=== PATIENT | male | born 1940 | race Caucasian/White ===

== ENCOUNTER 2017-08-13 15:23 | Emergency (ER) | payer MEDICARE, OTHER ==
--- NOTE | 2017-08-13 15:55 | ED Physician Documentation ---
History of Present Illness - Stated complaint Stated Complaint: GLF/ R ELBOW PX - Chief complaint Chief Complaint: Ext Problem - History obtained from History obtained from: Patient, Family - History of Present Illness Timing: How many hours ago (2) Pain level max: 8 Pain level now: 5 Quality: aching Improved by: rest Worsened by: movement - Additonal information Additional information: Patient is a 77-year-old male who presents to the emergency department after a fall onto concrete today. Complaining of right elbow pain. Denies any shoulder pain, forearm pain wrist or hand pain. It did not strike his head. No loss of consciousness. No vomiting. No back pain. Not on blood thinners. Review of Systems Constitutional: denies: Fever, Chills Nose: denies: Rhinorrhea / runny nose, Congestion Throat: denies: Sore throat Cardiac: denies: Chest pain / pressure Respiratory: denies: Cough GI: denies: Nausea, Vomiting, Diarrhea Skin: denies: Rash Musculoskeletal: denies: Neck pain, Back pain Neurologic: denies: Focal weakness, Numbness, Confused, Altered mental status, Headache PD PAST MEDICAL HISTORY - Past Medical History Past Medical History: Yes : Renal insuffiency - Past Surgical History Past Surgical History: Yes Ortho: Hip replacement Other past surgical history: lung transplant - Present Medications Home Medications: Ambulatory Orders Medication Instructions Recorded Confirmed Atorvastatin Calcium [Lipitor] 40 mg PO DAILY 08/15/15 08/15/15 Tacrolimus 1 mg PO DAILY 08/15/15 08/15/15 Hydrocodone/Acetaminophen 1 - 2 each PO Q6H PRN #14 tablet 08/13/17 [Hydrocodon-Acetaminophen 5-325] - Allergies Allergies/Adverse Reactions: Allergies Allergy/AdvReac Type Severity Reaction Status Date / Time No Known Drug Allergies Allergy Verified 10/08/14 09:38 - Living Situation Living Situation: reports: With family Living Arrangement: reports: At home - Social History Does the pt smoke?: No Smoking Status: Never smoker Does the pt drink ETOH?: No Does the pt have substance abuse?: No - Immunizations Immunizations are current?: Yes PD ED PE NORMAL - Vitals Vital signs reviewed: Yes - General General: Alert and oriented X 3, No acute distress - HEENT HEENT: Atraumatic, PERRL, EOMI, Moist mucous membranes - Neck Neck: Supple, no meningeal sign, No bony TTP - Cardiac Cardiac: RRR - Respiratory Respiratory: No respiratory distress, Clear bilaterally - Abdomen Abdomen: Soft, Non tender, Non distended - Back Back: No spinal TTP - Derm Derm: Warm and dry - Extremities Extremities: No deformity, Other (Pain with ROM of the R elbow and hematoma to the olecranon aspect. ) - Neuro Neuro: Alert and oriented X 3, staging technician 2-12 intact, No motor deficit, No sensory deficit, Normal speech Eye Opening: Spontaneous Motor: Obeys Commands Verbal: Oriented GCS Score: 15 - Psych Psych: Normal mood, Normal affect Results - Vitals Vitals: Vital Signs - 24 hr 08/13/17 08/13/17 15:29 16:50 Temperature 36.6 C Heart Rate 78 70 Respiratory 18 16 Rate Blood Pressure 128/80 120/68 O2 Saturation 98 Oxygen O2 Source Room air - Rads (name of study) R elbow xray Radiology: Prelim report reviewed, EMP read contemporaneously, See rad report ( Displaced intra-articular olecranon fracture with large joint effusion) Procedures - Splint (location) R arm Splint applied by: Physician, Tech Type of splint: Fiberglass, Long arm, Posterior Other: Patient tolerated well, No complications, Neurovascular intact, Sling provided PD MEDICAL DECISION MAKING - ED course Complexity details: reviewed results, re-evaluated patient, considered differential, d/w patient, d/w car sales consultant ED course: Patient is a 77-year-old male with a displaced olecranon fracture of the right elbow after a fall onto concrete today. Placed in a posterior splint and a sling after discussion with Dr. Montano, orthopedist on-call, who recommends follow-up in the office for operative repair. No other injuries. No head injury. Patient declines any pain medication here or for home. Neurovascularly intact. Patient counseled regarding signs and symptoms for which I believe and urgent re-evaluation would be necessary. Patient with good understanding of and agreement to plan and is comfortable going home at this time This document was made in part using voice recognition software. While efforts are made to proofread this document, sound alike and grammatical errors may occur. - Sepsis Event Vital Signs: Vital Signs - 24 hr 08/13/17 08/13/17 15:29 16:50 Temperature 36.6 C Heart Rate 78 70 Respiratory 18 16 Rate Blood Pressure 128/80 120/68 O2 Saturation 98 Oxygen O2 Source Room air Departure - Departure Disposition: 01 Home, Self Care Clinical Impression: Displaced intra-articular fracture of olecranon process of right ulna Qualifiers: Encounter type: initial encounter Fracture type: closed Qualified Code(s): S52.031A - Displaced fracture of olecranon process with intraarticular extension of right ulna, initial encounter for closed fracture Condition: Good Instructions: ED Fx Upper Ext Follow-Up: [facility] [Provider Group] - Within 1 week Prescriptions: Hydrocodone/Acetaminophen [Hydrocodon-Acetaminophen 5-325] 1 - 2 each PO Q6H PRN #14 tablet PRN Reason: pain Comments: Return if you worsen. Follow up with orthopedics this week for further care. I spoke with Dr. Juarez today. Do not drink alcohol or drive while on narcotic pain medicine. Note that many narcotic pain relievers also contain tylenol/acetaminophen. Please ensure that your total dose of acetaminophen from all sources does not exceed 3 grams (3000mg) per day. You may constipated on this medication, take a stool softener such as "Colace" twice a day while you are on it. Also recommend a haoy-vgb-rmyyprg laxative such as senna or MiraLAX any day that you do not have a bowel movement. If you received narcotic pain medication in the emergency department, do not drive or operate machinery for the next 24 hours. Discharge Date/Time: 08/13/17 16:58
--- NOTE | 2017-08-13 16:18 | XRAY Report ---
Procedure Date: 08/13/2017 Accession Number: [id number] / [id number] Procedure: XR - Elbow 3 View RT CPT Code: FULL RESULT: EXAM: RIGHT ELBOW RADIOGRAPHY EXAM DATE: 08/13/2017 03:54 PM. CLINICAL HISTORY: Fell onto concrete. COMPARISON: None. TECHNIQUE: 3 views. FINDINGS: Bones: There is an intra-articular comminuted fracture of the olecranon. The fracture demonstrates 1 cm of displacement. Joints: There is a large joint effusion. No dislocation. Soft Tissues: There is soft tissue swelling. IMPRESSION: Displaced intra-articular olecranon fracture with large joint effusion. RADIA
[2017-08-13 18:19] VITALS: BP 120/68
== END 2017-08-13 16:58 | disposition home or self-care (01) ==
LOC: ED 15:23
DX: S52.031A Displaced fracture of olecranon process with intraarticular extension of right ulna, initial encounter for closed fracture (principal); W01.10XA Fall on same level from slipping, tripping and stumbling with subsequent striking against unspecified object, initial encounter; Y93.01 Activity, walking, marching and hiking; Z96.649 Presence of unspecified artificial hip joint; Z94.2 Lung transplant status
CPT/HCPCS: 29105; 99283; 99284

== ENCOUNTER 2017-08-14 16:36 | Emergency (ER) | payer MEDICARE, OTHER ==
[2017-08-14 17:03] VITALS: BP 131/95
--- NOTE | 2017-08-14 18:31 | ED Physician Documentation ---
PD HPI WOUND RECHECK - Stated complaint Stated Complaint: R ELBOW PX - Chief complaint Chief Complaint: General - Histroy obtained from History obtained from: Patient, Family - History of Present Illness Location: Right Upper Extremity (elbow) Recently seen: Emergency Dept (seen with Dx of elbow fracture, with splint and given Rx for 14 pain meds and to see Ortho. Has appt next week and is concerned about running out of meds as is down to few of them and will run out on the 4th before can get other Rx.) Review of Systems Constitutional: denies: Fever, Chills Skin: denies: Abrasion (s) Musculoskeletal: reports: Other (right hand edema distal to the víctor wraps.) PD PAST MEDICAL HISTORY - Past Medical History Past Medical History: Yes : Renal insuffiency - Past Surgical History Past Surgical History: Yes Ortho: Hip replacement - Present Medications Home Medications: Ambulatory Orders Medication Instructions Recorded Confirmed Atorvastatin Calcium [Lipitor] 40 mg PO DAILY 08/15/15 08/15/15 Tacrolimus 1 mg PO DAILY 08/15/15 08/15/15 Hydrocodone/Acetaminophen 1 - 2 each PO Q6H PRN #14 tablet 08/13/17 [Hydrocodon-Acetaminophen 5-325] HYDROcod/ACETAM 5/325 [[place] 5/325] 1 - 2 tab PO Q6H PRN #25 tablet 08/14/17 - Allergies Allergies/Adverse Reactions: Allergies Allergy/AdvReac Type Severity Reaction Status Date / Time No Known Drug Allergies Allergy Verified 10/08/14 09:38 - Social History Does the pt smoke?: No Smoking Status: Never smoker Does the pt drink ETOH?: No Does the pt have substance abuse?: No - Immunizations Immunizations are current?: Yes PD ED PE NORMAL - Vitals Vital signs reviewed: Yes - General General: Alert and oriented X 3, No acute distress, Well developed/nourished - HEENT HEENT: Atraumatic - Neck Neck: Other (right elbow painful to attempt ROM of it. ) - Cardiac Cardiac: RRR, No murmur - Respiratory Respiratory: Clear bilaterally - Derm Derm: Normal color, Warm and dry - Extremities Extremities: No tenderness to palpate - Neuro Neuro: Alert and oriented X 3, No motor deficit, Normal speech - Psych Psych: Normal mood, Normal affect Results - Vitals Vitals: Oxygen O2 Source Room air PD MEDICAL DECISION MAKING - ED course Complexity details: considered differential (had to use pain meds regularly and will not have ortho appt until next week. So here for more pain meds, so does not run out over day of , adn has oted hand swollen, so had Tech loosen the víctor wrap loosened. ), d/w patient, d/w family (spouse) - Sepsis Event Vital Signs: Oxygen O2 Source Room air Departure - Departure Disposition: Home, Self Care Clinical Impression: Fracture follow-up Condition: Stable Record reviewed to determine appropriate education?: Yes Prescriptions: HYDROcod/ACETAM 5/325 [[place] 5/325] 1 - 2 tab PO Q6H PRN #25 tablet PRN Reason: Pain Comments: Continue the current splint sling and care. Continue medications as prescribed. Ice and elevate the elbow often to reduce swelling. The looser Víctor wrap should help the swelling in that hand. Follow-up Sunday as planned with orthopedics. Discharge Date/Time: 08/14/17 19:18
[2017-08-14] MEDS ORDERED: HYDROcod/ACETAM 5/325 MG TABLET PO STA (18:50)
== END 2017-08-14 19:18 | disposition home or self-care (01) ==
LOC: ED 16:36
DX: S42.401A Unspecified fracture of lower end of right humerus, initial encounter for closed fracture (principal); M79.89 Other specified soft tissue disorders
CPT/HCPCS: 99283; A9270

== ENCOUNTER 2017-10-16 12:51 | Outpatient (CLI) | payer MEDICARE, OTHER ==
[2017-10-16 18:04] LABS: CREATININE 2.9 mg/dL (0.6-1.2)
== END 2017-10-16 12:52 | disposition home or self-care (01) ==
LOC: LAB.F 12:51
PROVIDERS: ATTEND Internal Medicine
DX: Z94.2 Lung transplant status (principal); Z79.899 Other long term (current) drug therapy
CPT/HCPCS: 36415; 80048; 80197

== ENCOUNTER 2017-11-05 11:45 | Emergency (ER) | payer MEDICARE, OTHER ==
--- NOTE | 2017-11-05 12:48 | ED Physician Documentation ---
PD HPI HEAD INJURY - Stated complaint Stated Complaint: HEAD LAC-GLF - Chief complaint Chief Complaint: Heent - History obtained from History obtained from: Patient - History of Present Illness Mechanism of head injury: Fell (uses walker/cane and says he lost balance and fell backward. Denies syncope nor feeling badly prior. Struck back of head on counter, with laceration. Feeling okay afterward. Not on blood thinners.) Where head injury occurred: Home Timing - onset: Today Location of injury: Back Associated symptoms: No: LOC, AMS, Nausea / vomiting Symptoms worsen with: Palpation Contributing factors: No: Anticoagulated, Intoxicated Similar symptoms before: No diagnosis (has balance problems ongoing.) Recently seen: Not recently seen Review of Systems Constitutional: denies: Fever Eyes: denies: Loss of vision Nose: denies: Rhinorrhea / runny nose, Congestion Cardiac: denies: Chest pain / pressure Respiratory: denies: Cough GI: denies: Abdominal Pain, Vomiting Neurologic: reports: Head injury. denies: Focal weakness, Numbness, Difficulty speaking, Altered mental status, Headache PD PAST MEDICAL HISTORY - Past Medical History Past Medical History: Yes Respiratory: Emphysema : Renal insuffiency Musculoskeletal: Osteoarthritis - Past Surgical History Past Surgical History: Yes Ortho: Hip replacement, Other - Present Medications Home Medications: Ambulatory Orders Medication Instructions Recorded Confirmed Atorvastatin Calcium [Lipitor] 40 mg PO DAILY 08/15/15 08/15/15 Tacrolimus 1 mg PO DAILY 08/15/15 08/15/15 Hydrocodone/Acetaminophen 1 - 2 each PO Q6H PRN #14 tablet 08/13/17 [Hydrocodon-Acetaminophen 5-325] HYDROcod/ACETAM 5/325 [[place] 5/325] 1 - 2 tab PO Q6H PRN #25 tablet 08/14/17 - Allergies Allergies/Adverse Reactions: Allergies Allergy/AdvReac Type Severity Reaction Status Date / Time No Known Drug Allergies Allergy Verified 10/08/14 09:38 - Social History Does the pt smoke?: No Smoking Status: Never smoker Does the pt drink ETOH?: No Does the pt have substance abuse?: No - Immunizations Immunizations are current?: Yes - POLST Patient has POLST: Yes PD ED PE NORMAL - Vitals Vital signs reviewed: Yes - General General: Alert and oriented X 3, No acute distress, Well developed/nourished, Other (frail appearance) - HEENT HEENT: Other (occiput with 2 lacs, totalling about 3 cm. Mild bleeding at upper one. They are both full thickness. No FB noted. ) - Neck Neck: Supple, no meningeal sign, No bony TTP, No adenopathy - Cardiac Cardiac: RRR, No murmur - Respiratory Respiratory: Clear bilaterally - Abdomen Abdomen: Soft, Non tender - Back Back: No spinal TTP - Derm Derm: Normal color, Warm and dry - Extremities Extremities: No tenderness to palpate, Normal ROM s pain - Neuro Neuro: Alert and oriented X 3, senior attorney 2-12 intact, No motor deficit, No sensory deficit, Normal speech Eye Opening: Spontaneous Motor: Obeys Commands Verbal: Oriented GCS Score: 15 Results - Vitals Vitals: Oxygen O2 Source Room air - Rads (name of study) head CT Radiology: Prelim report reviewed (no ICH), EMP read contemporaneously Procedures - Laceration (location) occipital scalp Length in cm: 3 Wound type: Linear, Into subcut fat, Clean Neurovascular status: Sensory intact Anesthesia: Lidocaine 1% with epi Wound Preparation: Irrigated copiously NS Skin layer closure: [place] Other: Patient tolerated well, No complications, Dressing applied, Tetanus UTD Complexity: Simple PD MEDICAL DECISION MAKING - ED course Complexity details: reviewed results, considered differential, d/w patient, d/w family () - Sepsis Event Vital Signs: Oxygen O2 Source Room air Departure - Departure Disposition: 01 Home, Self Care Clinical Impression: Fall from slip, trip, or stumble Qualifiers: Encounter type: initial encounter Qualified Code(s): W01.0XXA - Fall on same level from slipping, tripping and stumbling without subsequent striking against object, initial encounter Scalp laceration Qualifiers: Encounter type: initial encounter Qualified Code(s): S01.01XA - Laceration without foreign body of scalp, initial encounter Condition: Stable Record reviewed to determine appropriate education?: Yes Instructions: ED Laceration Scalp Stitch Or Stap Follow-Up: Maninder Diez MD [Primary Care Provider] - Comments: It is okay to wash and shower. Clean off the wound twice a day with soap and water, or peroxide and water. Apply some antibiotic ointment to it to keep it moist. Also to watch for signs of infection such as purulence, redness or increasing pain. Return to your primary care or the ER at the specified time for suture removal. Staple removal in 8-10 days. Tylenol if needed for pains. Your head CT scan appears normal without any signs of bleeding intracranially or skull fracture etc. Discharge Date/Time: 11/05/17 14:18
[2017-11-05] MEDS ORDERED: LIDOCAINE MPF 1%-EPI 1:200000 30 ML VIAL SUBQ STA (13:03)
--- NOTE | 2017-11-05 13:41 | CT Report ---
Reason: fell and hit head Procedure Date: 11/05/2017 Accession Number: [id number] / [id number] Procedure: CT - Head W/O CPT Code: FULL RESULT: EXAM: CT HEAD EXAM DATE: 11/05/2017 01:29 PM. CLINICAL HISTORY: Fell and hit head. COMPARISON: CT head without contrast 11/05/2017 1:19 pm. TECHNIQUE: Multiaxial CT images were obtained from the foramen magnum to the vertex. Reformats: Sagittal and coronal. IV contrast: None. In accordance with CT protocol optimization, one or more of the following dose reduction techniques were utilized for this exam: automated exposure control, adjustment of mA and/or KV based on patient size, or use of iterative reconstructive technique. FINDINGS: Parenchyma: No intraparenchymal hemorrhage. No evidence of mass, midline shift, or CT findings of infarction. Karimi-white differentiation is distinct. Extraaxial Spaces: Normal for age. No subdural or epidural collections identified. Ventricles: Normal in size and position. Sinuses and Orbits: Imaged paranasal sinuses, orbits, and mastoids show no significant abnormality. Bones: No evidence of fracture or calvarial defect. Other: Extracranially, soft tissue swelling is identified along the posterior left head and the posterior laceration in midline is also identified. IMPRESSION: No acute intracranial abnormality. Extracranial soft tissue findings along the posterior head. RADIA
[2017-11-05 14:09] VITALS: BP 143/93
== END 2017-11-05 14:18 | disposition home or self-care (01) ==
LOC: ED 11:45
DX: S01.01XA Laceration without foreign body of scalp, initial encounter (principal); W18.30XA Fall on same level, unspecified, initial encounter; Y92.009 Unspecified place in unspecified non-institutional (private) residence as the place of occurrence of the external cause; Z96.649 Presence of unspecified artificial hip joint
CPT/HCPCS: 12002; 70450; 99282; 99283

== ENCOUNTER 2017-11-25 17:38 | Emergency (ER) | payer MEDICARE, OTHER ==
[2017-11-25 17:46] VITALS: BP 144/81
--- NOTE | 2017-11-25 18:15 | ED Physician Documentation ---
PD HPI HEAD INJURY - Stated complaint Stated Complaint: GLF/HEAD LAC - Chief complaint Chief Complaint: Laceration - History obtained from History obtained from: Patient - History of Present Illness Mechanism of head injury: Fell (lost balance, poor short term memory so does not recall why he fell. He does not recall feeling ill earlier in the day, and his says he had not complained of illness previously. History of early Parkinsons and has poor balance.) Where head injury occurred: Home Timing - onset: Today Location of injury: Back Quality of pain: Aching Associated symptoms: No: LOC, AMS, Nausea / vomiting, Neck pain Symptoms worsen with: Palpation Contributing factors: No: Anticoagulated, Intoxicated Similar symptoms before: Has not had sx before Recently seen: Not recently seen Review of Systems Constitutional: denies: Fever Nose: denies: Rhinorrhea / runny nose, Congestion Throat: denies: Sore throat Respiratory: denies: Cough GI: denies: Nausea, Vomiting, Diarrhea Skin: reports: Laceration (s) Neurologic: denies: Focal weakness, Numbness, Near syncope, Altered mental status, Headache PD PAST MEDICAL HISTORY - Past Medical History Respiratory: Emphysema : Renal insuffiency Musculoskeletal: Osteoarthritis - Past Surgical History Past Surgical History: Yes Ortho: Hip replacement, Other - Present Medications Home Medications: Ambulatory Orders Medication Instructions Recorded Confirmed Atorvastatin Calcium [Lipitor] 40 mg PO DAILY 08/15/15 08/15/15 Tacrolimus 1 mg PO DAILY 08/15/15 08/15/15 Hydrocodone/Acetaminophen 1 - 2 each PO Q6H PRN #14 tablet 08/13/17 [Hydrocodon-Acetaminophen 5-325] HYDROcod/ACETAM 5/325 [[place] 5/325] 1 - 2 tab PO Q6H PRN #25 tablet 08/14/17 - Allergies Allergies/Adverse Reactions: Allergies Allergy/AdvReac Type Severity Reaction Status Date / Time codeine AdvReac Nausea Verified 11/25/17 17:47 - Social History Does the pt smoke?: No Smoking Status: Never smoker Does the pt drink ETOH?: No Does the pt have substance abuse?: No - Immunizations Immunizations are current?: Yes - POLST Patient has POLST: Yes PD ED PE NORMAL - Vitals Vital signs reviewed: Yes - General General: Alert and oriented X 3, No acute distress, Well developed/nourished - HEENT HEENT: PERRL, EOMI, Moist mucous membranes, Pharynx benign, Other (upper occipital area with 2.8 cm lac with abraded edges, without FB. No depression of scalp area. No bleeding. ) - Neck Neck: Supple, no meningeal sign, No bony TTP, No adenopathy - Back Back: No spinal TTP - Derm Derm: Normal color, Warm and dry - Neuro Neuro: Alert and oriented X 3, lion tamer 2-12 intact, No motor deficit, Normal speech Eye Opening: Spontaneous Motor: Obeys Commands Verbal: Oriented GCS Score: 15 Results - Vitals Vitals: Vital Signs - 24 hr 11/25/17 17:44 Temperature 36.1 C L Heart Rate 85 Respiratory 16 Rate Blood Pressure 144/81 H O2 Saturation 98 Oxygen O2 Source Room air Procedures - Laceration (location) occipital scalp (upper) Length in cm: 2.8 Wound type: Linear, Into subcut fat (with abarsions at edges.), Clean Anesthesia: Lidocaine 1% with epi Wound Preparation: Irrigated copiously NS, Wound explored, To the base. No: FB identified Skin layer closure: [place] Other: Patient tolerated well, No complications, Tetanus UTD Complexity: Simple PD MEDICAL DECISION MAKING - ED course Complexity details: considered differential (not on blood thinners. Had glancing injury to scalp with lac. No LOC nor hard direct impact. No concussive symptoms. Talked with him and and shared decision with me to not get imaging. Placed sharmaine in wound without problems. ), d/w patient, d/w family () Departure - Departure Disposition: 01 Home, Self Care Clinical Impression: Fall, accidental Qualifiers: Encounter type: initial encounter Qualified Code(s): W19.XXXA - Unspecified fall, initial encounter Occipital scalp laceration Qualifiers: Encounter type: initial encounter Qualified Code(s): S01.01XA - Laceration without foreign body of scalp, initial encounter Condition: Stable Record reviewed to determine appropriate education?: Yes Instructions: ED Laceration Scalp Stitch Or Stap Follow-Up: Maninder Diez MD [Primary Care Provider] - Comments: It is okay to wash and shower. Clean off the wound twice a day with soap and water, or peroxide and water. Apply some antibiotic ointment to it to keep it moist. Also to watch for signs of infection such as purulence, redness or increasing pain. Return to your primary care or the ER at the specified time for suture removal. Staple removal about 10 days. Tylenol if needed for pains. Discharge Date/Time: 11/25/17 18:44
== END 2017-11-25 18:44 | disposition home or self-care (01) ==
LOC: ED 17:38
DX: S01.01XA Laceration without foreign body of scalp, initial encounter (principal); W19.XXXA Unspecified fall, initial encounter; Y92.009 Unspecified place in unspecified non-institutional (private) residence as the place of occurrence of the external cause
CPT/HCPCS: 12002; 99283

== ENCOUNTER 2018-02-25 14:15 | Observation (INO) | payer MEDICARE, OTHER ==
--- NOTE | 2018-02-25 16:49 | XRAY Report ---
Reason: GLF, rt hip pain, unable to bear wt Procedure Date: 02/25/2018 Accession Number: [id number] / [id number] Procedure: XR - Hip w/Pelvis 2-3V RT CPT Code: FULL RESULT: EXAM: RIGHT HIP AND PELVIS RADIOGRAPHY EXAM DATE: 02/25/2018 04:33 PM. HISTORY: GLF, rt hip pain, unable to bear wt. COMPARISONS: PELVIS 3 VIEW 08/15/2015 11:56 AM. TECHNIQUE: 1 view of the pelvis and 1 view of the hip. FINDINGS: Bones: Right hip arthroplasty appears intact. Old healed left obturator ring fractures. Similar sclerotic region superior to the right acetabulum. Similar heterotopic ossification lateral to the right hip. Bones appear osteopenic. Joints: Mild-moderate left hip joint DJD. Soft Tissues: Unremarkable. IMPRESSION: 1. No definite acute osseous abnormality. 2. Other findings as noted above. RADIA
[2018-02-25] MEDS ORDERED: HYDROcod/ACETAM 5/325 MG TABLET PO STA (19:38)
[2018-02-25 19:54] LABS: BASOPHILS # (AUTO) 0.1 10^3/uL (0.0-0.1); BASOPHILS % (AUTO) 1.1 %; EOSINOPHILS # (AUTO) 0.1 10^3/uL (0.0-0.7); EOSINOPHILS % (AUTO) 1.6 %; HGB - HEMOGLOBIN 12.9 g/dL (14.0-18.0); LYMPHOCYTES # (AUTO) 0.6 10^3/uL (1.5-3.5); LYMPHOCYTES % (AUTO) 8.5 %; MEAN CORPUSCULAR HEMOGLOBIN 30.5 pg (27.0-31.0); MEAN CORPUSCULAR VOLUME 95.1 fL (80.0-94.0); MEAN PLATELET VOLUME 6.2 fL (7.4-11.4); MONOCYTES # (AUTO) 0.9 10^3/uL (0.0-1.0); MONOCYTES % (AUTO) 12.5 %; NEUTROPHILS # (AUTO) 5.5 10^3/uL (1.5-6.6); NEUTROPHILS % (AUTO) 76.3 %; PLT - PLATELET COUNT 168 10^3/uL (130-450); RED BLOOD COUNT 4.24 10^6/uL (4.70-6.10); RED CELL DISTRIBUTION WIDTH 15.6 % (12.0-15.0); WHITE BLOOD COUNT 7.2 x10^3/uL (4.8-10.8)
[2018-02-25 20:03] LABS: CREATININE 2.7 mg/dL (0.6-1.2)
--- NOTE | 2018-02-25 21:39 | CT Report ---
Reason: Right hip pain, unable to bare weight Procedure Date: 02/25/2018 Accession Number: [id number] / [id number] Procedure: CT - Lower Extremity Right W/O CPT Code: FULL RESULT: EXAM: RIGHT HIP CT WITHOUT CONTRAST EXAM DATE: 02/25/2018 09:21 PM. CLINICAL HISTORY: Right hip pain. Inability to bear weight. COMPARISON: 142 02/25/2018 radiograph. TECHNIQUE: Thin-section axial images were acquired of the hip without contrast. Post-processing: Coronal and sagittal reformats. Other: None. In accordance with CT protocol optimization, one or more of the following dose reduction techniques were utilized for this exam: automated exposure control, adjustment of mA and/or KV based on patient size, or use of iterative reconstructive technique. FINDINGS: Evaluation is limited by patient positioning issues. Bones: A benign bone island is in the right mid ileum. Severe osteopenia limits evaluation for subtle bony abnormalities. The patient has a right hip arthroplasty with non-fixated components. No acute gross displaced fractures by CT. There does appear to be an old healed fracture of the left pubic bone with deformity. Small acetabular cysts are seen. Joints: The visualized hip joint spaces are normal. No calcified loose bodies. No large effusions. The other visualized joint spaces are normal. Musculature: Normal. No fatty atrophy. Other: The visualized intraperitoneal structures are unremarkable. IMPRESSION: No definite acute findings. Note that CT can be falsely negative for trabecular fractures in the elderly. RADIA
[2018-02-25] MEDS ORDERED: ONDANSETRON ODT 4 MG TABLET TL PRN (22:26)
[2018-02-25] MEDS ORDERED: SODIUM CHLORIDE FLUSH 0.9% 10 ML SYRINGE IVP PRN (22:26)
[2018-02-25] MEDS ORDERED: MORPHINE 2 MG/ML CARPUJECT IVP PRN (22:26)
[2018-02-25] MEDS ORDERED: ACETAMINOPHEN 325 MG TABLET PO PRN (22:26)
[2018-02-25] MEDS ORDERED: ZOLPIDEM 5 MG TABLET PO PRN (22:26)
--- NOTE | 2018-02-25 22:28 | ED Physician Documentation ---
PD HPI LOWER EXT INJURY - Stated complaint Stated Complaint: GLF/HIP INJ - Chief complaint Chief Complaint: Ext Problem - History obtained from History obtained from: Patient - History of Present Illness PD HPI LOW EXT INJURY LOCATION: Right, Hip Type of injury: Fall Where injury occurred: Home Timing - onset: How many hours ago (24) Timing - duration: Days (1) Timing - details: Abrupt onset Pain level max: 8 Pain level now: 3 Improved by: Rest Worsened by: Moving Associated symptoms: Weakness Contributing factors: Prosthetic joint Review of Systems Ten Systems: 10 systems reviewed and negative Constitutional: reports: Reviewed and negative Eyes: reports: Reviewed and negative Ears: reports: Reviewed and negative Nose: reports: Reviewed and negative Throat: reports: Reviewed and negative Cardiac: reports: Reviewed and negative Respiratory: reports: Reviewed and negative GI: reports: Reviewed and negative : reports: Reviewed and negative Skin: reports: Reviewed and negative Musculoskeletal: reports: Reviewed and negative Neurologic: reports: Reviewed and negative Psychiatric: reports: Reviewed and negative Endocrine: reports: Reviewed and negative Immunocompromised: reports: Reviewed and negative PD PAST MEDICAL HISTORY - Past Medical History Cardiovascular: None Respiratory: Emphysema Neuro: Parkinson's Endocrine/Autoimmune: None GI: None : Renal insuffiency HEENT: None Psych: None Musculoskeletal: Osteoarthritis Derm: None Other Past Medical History: History of lung transplant, CKD - Past Surgical History Past Surgical History: Yes Ortho: Hip replacement, Other Other past surgical history: Reviewed and not relevant - Present Medications Home Medications: Ambulatory Orders Medication Instructions Recorded Confirmed Atorvastatin Calcium [Lipitor] 40 mg PO DAILY 08/15/15 08/15/15 Tacrolimus 1 mg PO DAILY 08/15/15 08/15/15 Hydrocodone/Acetaminophen 1 - 2 each PO Q6H PRN #14 tablet 08/13/17 [Hydrocodon-Acetaminophen 5-325] HYDROcod/ACETAM 5/325 [[place] 5/325] 1 - 2 tab PO Q6H PRN #25 tablet 08/14/17 - Allergies Allergies/Adverse Reactions: Allergies Allergy/AdvReac Type Severity Reaction Status Date / Time codeine AdvReac Nausea Verified 02/25/18 15:20 - Living Situation Living Situation: reports: With spouse/s.o. Living Arrangement: reports: At home - Social History Does the pt smoke?: No Smoking Status: Never smoker Does the pt drink ETOH?: Yes Does the pt have substance abuse?: No - Family History Family history: reports: Other (Reviewed and not relevant) - Immunizations Immunizations are current?: Yes - POLST Patient has POLST: Yes PD ED PE NORMAL - Vitals Vital signs reviewed: Yes - General General: Alert and oriented X 3, No acute distress - HEENT HEENT: PERRL - Neck Neck: Supple, no meningeal sign - Cardiac Cardiac: RRR, No murmur - Respiratory Respiratory: Clear bilaterally - Abdomen Abdomen: Normal bowel sounds, Soft, Non tender, Non distended - Derm Derm: Warm and dry - Extremities Extremities: No deformity, Other (Right hip tender to palpation w reduced range of motion, small bruise. ) - Neuro Neuro: Alert and oriented X 3 - Psych Psych: Normal mood, Normal affect Results - Vitals Vitals: Vital Signs - 24 hr 02/25/18 02/25/18 15:15 20:01 Temperature 36.1 C L 36.7 C Heart Rate 79 84 Respiratory 18 18 Rate Blood Pressure 172/102 H 158/97 H O2 Saturation 97 98 Oxygen O2 Source Room air - Labs Labs: Laboratory Tests 02/25/18 02/25/18 19:49 19:49 WBC 7.2 RBC 4.24 L Hgb 12.9 L Hct 40.3 L MCV 95.1 H MCH 30.5 MCHC 32.0 RDW 15.6 H Plt Count 168 MPV 6.2 L Neut # (Auto) 5.5 Lymph # (Auto) 0.6 L [place] # (Auto) 0.9 Eos # (Auto) 0.1 Baso # (Auto) 0.1 Absolute Nucleated RBC 0.00 Nucleated RBC % 0.0 Sodium 137 Potassium 3.8 Chloride 109 Carbon Dioxide 21 Anion Gap 7.0 BUN 64 H Creatinine 2.7 H Estimated GFR (MDRD) 23 L Glucose 126 H Calcium 9.0 PD MEDICAL DECISION MAKING - ED course ED course: 77-year-old male with history of right hip replacement presents with right hip pain after ground-level fall. X-ray and CT unremarkable for fracture. Patient was unable to ambulate safely and was admitted for ambulatory dysfunction. Departure - Departure Disposition: ED Place in Observation Clinical Impression: Ambulatory dysfunction Sprain of right hip Qualifiers: Encounter type: initial encounter Qualified Code(s): S73.101A - Unspecified sprain of right hip, initial encounter Condition: Fair Discharge Date/Time: 02/25/18 23:00
[2018-02-25] MEDS ORDERED: LIDOCAINE PATCH 5% TOP PRN (23:14)
--- NOTE | 2018-02-25 23:33 | HISTORY & PHYSICAL EXAMINATION ---
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 He was unable to bear weight on it and was brought to the emergency room for further evaluation. In the ED, the hip x-ray was negative for fracture, and this was followed by a CT scan of the hip which was also negative for acute fracture or other abnormal findings. Patient was going to be discharged by the ED physician however after giving an oxycodone orally, he was unable to ambulate even after using some walking poles to help him get out of the wheelchair. It was determined that because of this, he may need at least an overnight observation and a physical therapy evaluation to ensure that he is safe for discharge due to his limited ambulatory status at this time. Incidentally, lab work was done by the ED physician to rule out any acute metabolic abnormalities and though he does have some abnormal labs, his renal function is at baseline and there are no acute abnormalities on a CBC or basic metabolic panel. History - Past Medical History Cardiovascular: reports: None Respiratory: reports: Emphysema Neuro: reports: Parkinson's Endocrine/Autoimmune: reports: None GI: reports: None : reports: Renal insuffiency HEENT: reports: None Psych: reports: None Musculoskeletal: reports: Osteoarthritis Derm: reports: None MRSA Hx?: No Other Past Medical History: History of lung transplant, CKD - Past Surgical History Ortho: reports: Hip replacement, Other Other past surgical history: Reviewed and not relevant - Family & Social History Family History: Sister: Cancer (Sister with skin cancer) Living arrangement: At home Living Situation: With spouse/s.o. - Substance History Use: Uses substance without health or social issues: NONE Abuse: Recurrent use of substance despite neg consequences: NONE - POLST Patient has POLST: Yes POLST Status: Full Code Meds/Allgy - Home Medications Home Medications: Ambulatory Orders Medication Instructions Recorded Confirmed Atorvastatin Calcium [Lipitor] 40 mg PO DAILY 08/15/15 08/15/15 Tacrolimus 1 mg PO DAILY 08/15/15 08/15/15 Hydrocodone/Acetaminophen 1 - 2 each PO Q6H PRN #14 tablet 08/13/17 [Hydrocodon-Acetaminophen 5-325] HYDROcod/ACETAM 5/325 [[place] 5/325] 1 - 2 tab PO Q6H PRN #25 tablet 08/14/17 - Allergies Allergies/Adverse Reactions: Allergies Allergy/AdvReac Type Severity Reaction Status Date / Time codeine AdvReac Nausea Verified 02/25/18 15:20 Review of Systems - Constitutional Constitutional: denies: Fever, Chills, Weakness - Cardiovascular Cariovascular: denies: Chest pain - Respiratory Respiratory: denies: SOB at rest - Gastrointestinal Gastrointestinal: denies: Abdominal pain - Musculoskeletal Musculoskeletal: reports: Muscle weakness, Joint pain, Other (Chronic gait imbalance) - Neurological Neurological: reports: Abnormal gait - Hematologic/Lymphatic Hematologic/Lymphatic: denies: Anemia, Bruising, Petechiae Prior Level of Functionality: Usually he is independent though he does have a pair of walking sticks, the type typically used for hiking, that he always keeps nearby because he sometimes gets gait disturbances. Otherwise on a more regular basis he does not require these and does not use a wheelchair or walker. Exam - Vital Signs Reviewed Vital Signs: Yes Vital Signs: Vital Signs x48h Temp Pulse Pulse Resp BP BP Pulse Ox 02/25/18 23:24 36.8 C 79 18 165/106 H 100 02/25/18 22:48 36.7 C 89 18 142/98 H 99 02/25/18 20:01 36.7 C 84 18 158/97 H 98 - Physical Exam General Appearance: positive: No acute distress Eyes Bilateral: positive: Normal inspection ENT: positive: ENT inspection nml Neck: positive: Nml inspection, Thyroid nml Respiratory: positive: Chest non-tender, No respiratory distress Cardiovascular: positive: Regular rate & rhythm, No murmur, No gallop Peripheral Pulses: positive: 2+ Abdomen: positive: Non-tender Skin: positive: Color nml Extremities: positive: Other (The exam of his lower extremities is significant for tenderness to the right hip on the lateral aspect at the trochanteric bursa. Of note, internal rotation and external rotation do not reproduce true intra- articular hip pain, or anterior groin pain.) Neurologic/Psychiatric: positive: Oriented x3, CN's nml (2-12), Motor nml, Sensation nml, Mood/affect nml Conclusion/Plan - Problem List (1) Trochanteric bursitis, right hip Conclusion/Plan: Patient's fall, with landing on the lateral hip, along with the findings on exam most strongly suggest an acute bursitis injury to the greater trochanter of the right hip. I have reviewed the x-ray and CT scan and there is no evidence for fracture. Although there can be a small rate of false positives on the CT scan, his physical exam is simply not compatible with a intra-articular hip exam so I think this is less likely. We will have him admitted overnight for observation and pain control and a physical therapy evaluation in the morning. I have also added a order for topical lidocaine to help with the relatively superficial pain along the trochanteric bursa. (2) Ambulatory dysfunction Conclusion/Plan: We will get a PT consult for further evaluation prior to discharge (3) Status post lung transplantation Conclusion/Plan: Patient has chronic immunosuppressants use, with abnormal renal function seconda ry to the tacrolimus. These labs are at his baseline and are not evidence of acute renal failure. Patient will be kept on his home medication. He will follow-up with his PCP or transplant specialist in the outpatient. (4) Hyperlipidemia Conclusion/Plan: Continue home medications - Lab Results Lab results reviewed: Yes Fish Bones: 02/25/18 19:49 02/25/18 19:49 - Diagnostic Imaging Results Diagnostic Imaging Results: positive: Final report reviewed, Read independently Core Measures - Anticipated LOS I expect patient to be DC'd or transferred within 96 hours.: Yes - DVT/VTE - Prophylaxis VTE/DVT Device ordered at admit?: Yes
[2018-02-26] MEDS: HYDROcod/ACETAM 5/325 MG TABLET PO PRN ×2 (00:20→01:29)
[2018-02-26] MEDS: SODIUM CHLORIDE FLUSH 0.9% 10 ML SYRINGE IVP SCH ×2 (01:32→08:03)
[2018-02-26] MEDS: HYDROcod/ACETAM 10 MG/325 MG TABLET PO PRN ×2 (05:33→09:45)
[2018-02-26] MEDS ORDERED: POLYETHYLENE GLYCOL 3350 17 GM PACKET PO SCH (09:00)
[2018-02-26] MEDS ORDERED: TACROLIMUS 0.5 MG CAPSULE PO SCH (09:00)
[2018-02-26] MEDS ORDERED: ATORVASTATIN 40 MG TABLET PO SCH (09:00)
[2018-02-26 11:18] VITALS: BP 136/88
--- NOTE | 2018-02-26 12:58 | Discharge Plan ---
Discharge Plan Disposition: Home Health Service Condition: Fair Prescriptions: Lidocaine Patch 5% [Lidoderm Patch] 1 patch TOP DAILY PRN #20 patch PRN Reason: Pain Diet: Regular Activity Restrictions: Activity as Tolerated Shower Restrictions: No Assistance Devices: Walker Weight Bearing: Full Weight Additional Instructions or Follow Up instructions: You were admitted with weakness, and a fall in which you injured your right hip. Imaging showed no fractures. Physical therapy evaluated you and recommended that you always use a walker rather than your sticks. You have room for improvement, so I have ordered home health physical therapy for ongoing strength and gait training. There have been no medication changes. I have sent lidocaine patches to the pharmacy. After you apply these, please wash your hands because if you accidentally touch your eye, it may dilate your pupil leading to visual impairment. Please consider home care givers since you told me that you continue to fall at home and this is worrisome for injuries. Please see your PCP within one week. Follow-Up Care: Home Health - PT No Smoking: If you smoke, Please STOP! Call for help. Follow-up with: Maninder Diez MD [Primary Care Provider] -
--- NOTE | 2018-02-26 13:04 | DISCHARGE SUMMARY ---
Discharge Summary Admit Date: 02/25/18 Discharge Date: 02/26/18 Discharging Provider: ILYA Leong Primary Care Provider: Carlos Diez Code Status: Attempt Resuscitation Condition at Discharge: Fair Discharge Disposition: 06 Home Health Service - DIAGNOSES Admission Diagnoses: Trochanteric bursitis, right hip (M70.61) Difficulty in walking, not elsewhere classified (R26.2) Lung transplant status (Z94.2) Hyperlipidemia, unspecified (E78.5) Discharge Diagnoses with Status of Each Condition: Trochanteric bursitis, right hip (M70.61) ongoing, improved. Patient was able to bear weight and passed a PT evaluation. Ambulatory dysfunction (R26.2) Advised to use a walker. Status post lung transplantation (Z94.2) chronic, stable. Hyperlipidemia (E78.5) chronic, stable. Falls (W19.XXXA) chronic, stable. Dementia (F03.90) chronic, stable. Weakness (R53.1) chronic, stable. Right hip pain (M25.551) improved since admission, stable. Lidocaine patches prescribed. - HPI History of Present Illness: HPI per Dr. 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 He was unable to bear weight on it and was brought to the emergency room for further evaluation. In the ED, the hip x- ray was negative for fracture, and this was followed by a CT scan of the hip which was also negative for acute fracture or other abnormal findings. Patient was going to be discharged by the ED physician however after giving an oxycodone orally, he was unable to ambulate even after using some walking poles to help him get out of the wheelchair. It was determined that because of this, he may need at least an overnight observation and a physical therapy evaluation to ensure that he is safe for discharge due to his limited ambulatory status at this time. Incidentally, lab work was done by the ED physician to rule out any acute metabolic abnormalities and though he does have some abnormal labs, his renal function is at baseline and there are no acute abnormalities on a CBC or basic metabolic panel. - HOSPITAL COURSE Hospital Course: The patient was observed overnight and passed a physical therapy evaluation after a fall that he sustained resulting in a right hip bursitis. He was very anxious to get back home with his and medically stable to be discharged. I ordered home health PT prior to his departure. - ALLERGIES Allergies/Adverse Reactions: Allergies Allergy/AdvReac Type Severity Reaction Status Date / Time codeine AdvReac Nausea Verified 02/25/18 15:20 - MEDICATIONS Home Medications: Ambulatory Orders Medication Instructions Recorded Confirmed Tacrolimus 5 mg PO Q12H 08/15/15 02/26/18 HYDROcod/ACETAM 5/325 [[place] 5/325] 1 - 2 tab PO Q6H PRN #25 tablet 08/14/17 Acyclovir 400 mg PO BID 02/26/18 02/26/18 Aspirin [Adult Aspirin] 81 mg PO DAILY 02/26/18 02/26/18 Atorvastatin Calcium 20 mg PO QPM 02/26/18 02/26/18 Calcitriol 0.25 mcg PO DAILY 02/26/18 02/26/18 Calcium Carbonate [Tums (Calcium 500 mg PO DAILY 02/26/18 02/26/18 Carbonate 500mg)] Carbidopa/Levodopa 25/100 [Sinemet 1 tab PO TID 02/26/18 02/26/18 25 mg/100 mg] Cholecalciferol (Vitamin D3) 400 unit PO DAILY 02/26/18 02/26/18 [Vitamin D3] Ketoconazole [Nizoral] 1 applic TOP .2-3 TIMES PER WEEK 02/26/18 02/26/18 PRN Metoprolol Tartrate 25 mg PO BID 02/26/18 02/26/18 Multivitamin [Multiple Vitamins] 1 each PO DAILY 02/26/18 02/26/18 Mycophenolate Mofetil [(None)] 250 mg PO BID 02/26/18 02/26/18 Pentamidine [Nebupent] 300 mg INH .MONTHLY 02/26/18 02/26/18 Prednisone 5 mg PO DAILY 02/26/18 02/26/18 - PHYSICAL EXAM AT DISCHARGE General Appearance: positive: No acute distress, Alert Eyes Bilateral: positive: PERRL ENT: positive: Pharynx nml, No signs of dehydration Neck: positive: Thyroid nml, No JVD, Trachea midline Respiratory: positive: Chest non-tender, No respiratory distress, Breath sounds nml Cardiovascular: positive: Regular rate & rhythm, No gallop, Systolic murmur Peripheral Pulses: positive: 2+ Abdomen: positive: Non-tender, Nml bowel sounds Back: positive: Nml inspection Skin: positive: No rash, Warm, Dry Extremities: positive: Non-tender, Full ROM, Pedal edema, Joint swelling Neurologic/Psychiatric: positive: Oriented x3, CN's nml (2-12), Motor nml, Sensation nml, Depressed mood/affect, Other (baseline dementia, poor short term memory/insight) Reflexes: Bicep (R): 2+, Bicep (L): 2+ - LABS Result Diagrams: 02/25/18 19:49 02/25/18 19:49 - DIAGNOSTIC IMAGING Diagnostic Imaging Results: Final report reviewed Diagnostic Imaging Results Comments: EXAM: RIGHT HIP AND PELVIS RADIOGRAPHY EXAM DATE: 02/25/2018 04:33 PM IMPRESSION: 1. No definite acute osseous abnormality. 2. Other findings as noted above. EXAM: RIGHT HIP CT WITHOUT CONTRAST EXAM DATE: 02/25/2018 09:21 PM. IMPRESSION: No definite acute findings. Note that CT can be falsely negative for trabecular fractures in the elderly. - FOLLOW UP Follow Up: Disposition: Home Health Service Prescriptions: Lidocaine Patch 5% [Lidoderm Patch] 1 patch TOP DAILY PRN #20 patch PRN Reason: Pain Assistance Devices: Walker Additional Instructions or Follow Up instructions: You were admitted with weakness, and a fall in which you injured your right hip. Imaging showed no fractures. Physical therapy evaluated you and recommended that you always use a walker rather than your sticks. You have room for improvement, so I have ordered home health physical therapy for ongoing strength and gait training. There have been no medication changes. I have sent lidocaine patches to the pharmacy. After you apply these, please wash your hands because if you accidentally touch your eye, it may dilate your pupil leading to visual impairment. Please consider home care givers since you told me that you continue to fall at home and this is worrisome for injuries. Please see your PCP within one week. - TIME SPENT Time Spent in Discharge (Minutes): 60
== END 2018-02-26 15:35 | disposition home health service (06) ==
LOC: ED 14:15 → MS2 22:46
PROVIDERS: ADMIT Family Medicine Sports Medicine; ATTEND Family Medicine Sports Medicine
DX: M70.61 Trochanteric bursitis, right hip (principal); W01.0XXA Fall on same level from slipping, tripping and stumbling without subsequent striking against object, initial encounter; Y92.000 Kitchen of unspecified non-institutional (private) residence as the place of occurrence of the external cause; R26.2 Difficulty in walking, not elsewhere classified; Z94.2 Lung transplant status; E78.5 Hyperlipidemia, unspecified; G20 Parkinson's disease; F02.80 Dementia in other diseases classified elsewhere, unspecified severity, without behavioral disturbance, psychotic disturbance, mood disturbance, and anxiety; M19.90 Unspecified osteoarthritis, unspecified site; R53.1 Weakness; Z96.641 Presence of right artificial hip joint; Z91.81 History of falling; Z79.899 Other long term (current) drug therapy; Z79.891 Long term (current) use of opiate analgesic; Z79.82 Long term (current) use of aspirin; Z79.52 Long term (current) use of systemic steroids
CPT/HCPCS: 36415; 73502; 73700; 80048; 85025; 97116; 97161; 99283; A9270; G0378; G8978; G8979; G8980

== ENCOUNTER 2018-02-27 14:14 | Outpatient (CLI) | payer MEDICARE, OTHER | END 2018-02-27 14:15 | disposition EMS.NT | LOC: EMS 14:14 | PROVIDERS: ATTEND Surgery | DX: Z03.89 Encounter for observation for other suspected diseases and conditions ruled out (principal); W10.8XXA Fall (on) (from) other stairs and steps, initial encounter; Y93.89 Activity, other specified; Y92.009 Unspecified place in unspecified non-institutional (private) residence as the place of occurrence of the external cause ==

== ENCOUNTER 2018-03-09 02:46 | Outpatient (CLI) | payer MEDICARE, OTHER | END 2018-03-09 02:47 | disposition home or self-care (01) | LOC: EMS 02:46 | PROVIDERS: ATTEND Surgery | DX: S50.812A Abrasion of left forearm, initial encounter (principal); S40.811A Abrasion of right upper arm, initial encounter; W01.198A Fall on same level from slipping, tripping and stumbling with subsequent striking against other object, initial encounter; Z91.81 History of falling; Y92.129 Unspecified place in nursing home as the place of occurrence of the external cause | CPT/HCPCS: A0425; A0429 ==

== ENCOUNTER 2018-03-09 03:09 | Emergency (ER) | payer MEDICARE, OTHER ==
[2018-03-09 03:18] VITALS: BP 179/125
[2018-03-09] MEDS ORDERED: BACITRACIN OINT TOP ONE (03:18)
[2018-03-09] MEDS ORDERED: BACITRACIN OINT TOP STA (03:20)
--- NOTE | 2018-03-09 03:23 | ED Physician Documentation ---
History of Present Illness - Stated complaint Stated Complaint: GLF - SKIN TEAR L FOREARM, ARM - Chief complaint Chief Complaint: Ext Problem - History obtained from History obtained from: Patient, EMS - History of Present Illness Timing: How many hours ago (1) Pain level max: 0 Pain level now: 0 Improved by: nothing Worsened by: nothing - Additonal information Additional information: 77-year-old male with Parkinson's was transferring from his wheelchair to his bed when he slipped creating a skin tear on the left forearm and right posterior upper arm. Bandaged at his assisted living facility and 911 called. He has no injuries. Did not strike his head. No neck or back pain. No other complaints. Patient is not on anticoagulants Review of Systems Ten Systems: 10 systems reviewed and negative Constitutional: denies: Fever, Chills Ears: denies: Ear pain Nose: denies: Rhinorrhea / runny nose, Congestion Throat: denies: Sore throat Cardiac: denies: Chest pain / pressure Respiratory: denies: Cough GI: denies: Nausea, Vomiting, Diarrhea Skin: denies: Rash Musculoskeletal: denies: Neck pain, Back pain Neurologic: denies: Headache PD PAST MEDICAL HISTORY - Past Medical History Cardiovascular: None Respiratory: Emphysema Neuro: Parkinson's Endocrine/Autoimmune: None GI: None : Renal insuffiency HEENT: None Psych: None Musculoskeletal: Osteoarthritis Derm: None - Past Surgical History Past Surgical History: Yes General: Colonoscopy Ortho: Hip replacement, Other Cardiovascular: Cardiac catheterization - Present Medications Home Medications: Ambulatory Orders Medication Instructions Recorded Confirmed Tacrolimus 5 mg PO Q12H 08/15/15 02/26/18 HYDROcod/ACETAM 5/325 [[place] 5/325] 1 - 2 tab PO Q6H PRN #25 tablet 08/14/17 Acyclovir 400 mg PO BID 02/26/18 02/26/18 Aspirin [Adult Aspirin] 81 mg PO DAILY 02/26/18 02/26/18 Atorvastatin Calcium 20 mg PO QPM 02/26/18 02/26/18 Calcitriol 0.25 mcg PO DAILY 02/26/18 02/26/18 Calcium Carbonate [Tums (Calcium 500 mg PO DAILY 02/26/18 02/26/18 Carbonate 500mg)] Carbidopa/Levodopa 25/100 [Sinemet 1 tab PO TID 02/26/18 02/26/18 25 mg/100 mg] Cholecalciferol (Vitamin D3) 400 unit PO DAILY 02/26/18 02/26/18 [Vitamin D3] Ketoconazole [Nizoral] 1 applic TOP .2-3 TIMES PER WEEK 02/26/18 02/26/18 PRN Metoprolol Tartrate 25 mg PO BID 02/26/18 02/26/18 Multivitamin [Multiple Vitamins] 1 each PO DAILY 02/26/18 02/26/18 Mycophenolate Mofetil [(None)] 250 mg PO BID 02/26/18 02/26/18 Pentamidine [Nebupent] 300 mg INH .MONTHLY 02/26/18 02/26/18 Prednisone 5 mg PO DAILY 02/26/18 02/26/18 Bacitracin Zinc Oint 1 applic TOP BID #1 tube 03/09/18 - Allergies Allergies/Adverse Reactions: Allergies Allergy/AdvReac Type Severity Reaction Status Date / Time codeine AdvReac Nausea Verified 03/09/18 03:20 - Social History Does the pt smoke?: No Smoking Status: Former smoker Does the pt drink ETOH?: Yes Does the pt have substance abuse?: No - Immunizations Immunizations are current?: Yes - POLST Patient has POLST: Yes POLST Status: Full Code PD ED PE NORMAL - Vitals Vital signs reviewed: Yes - General General: Alert and oriented X 3, No acute distress, Well developed/nourished - HEENT HEENT: Atraumatic, PERRL, Moist mucous membranes, Pharynx benign - Neck Neck: Supple, no meningeal sign, No bony TTP - Cardiac Cardiac: RRR, Strong equal pulses - Respiratory Respiratory: No respiratory distress, Clear bilaterally - Back Back: No spinal TTP - Derm Derm: Warm and dry - Extremities Extremities: No deformity, No tenderness to palpate, Normal ROM s pain, Other (2 x 5 cm skin tear to the left forearm. 1 x 3 cm skin tear to the posterior right upper arm. NVI. bleeding controlled.) - Neuro Neuro: Alert and oriented X 3 Results - Vitals Vitals: Vital Signs - 24 hr 03/09/18 03/09/18 03:10 03:17 Temperature 36.3 C L Heart Rate 87 88 Respiratory 17 16 Rate Blood Pressure 179/125 H O2 Saturation 97 95 Oxygen O2 Source Room air PD MEDICAL DECISION MAKING - ED course Complexity details: considered differential, d/w patient ED course: 77-year-old male with a ground-level fall. Skin tear to the left forearm and right upper arm. These were cleansed and bandaged. Mepitel applied followed by bacitracin and Kerlix. Tetanus is up-to-date. No other injuries. Warnings of infection and instructions on wound care given at bedside. Also counseled on how to minimize scarring. Patient counseled regarding signs and symptoms for which I believe and urgent re-evaluation would be necessary. Patient with good understanding of and agreement to plan and is comfortable going home at this time This document was made in part using voice recognition software. While efforts are made to proofread this document, sound alike and grammatical errors may occur. Departure - Departure Disposition: 01 Home, Self Care Clinical Impression: Avulsion of skin Condition: Good Instructions: ED Wound Care Follow-Up: your,doctor in 3 days for a wound check [Other] Prescriptions: Bacitracin Zinc Oint 1 applic TOP BID #1 tube Comments: Apply the bacitracin twice a day as the wound is healing. The Mepitel can stay in place for up to 1 week. Change the Kerlix twice a day. Follow-up with your doctor in 3 days for a wound check. You may need a referral to wound care depending on how you are healing. Return for redness, swelling or drainage from the wound.
== END 2018-03-09 07:57 | disposition home or self-care (01) ==
LOC: EDUNIT# → ED 03:09
DX: S51.812A Laceration without foreign body of left forearm, initial encounter (principal); S41.111A Laceration without foreign body of right upper arm, initial encounter; W18.30XA Fall on same level, unspecified, initial encounter; Y92.099 Unspecified place in other non-institutional residence as the place of occurrence of the external cause; Z96.649 Presence of unspecified artificial hip joint; Z87.891 Personal history of nicotine dependence
CPT/HCPCS: 99283; 99284; A9270

== ENCOUNTER 2018-04-19 15:34 | Emergency (ER) | payer MEDICARE, OTHER ==
--- NOTE | 2018-04-19 18:01 | XRAY Report ---
Reason: fall, L hip pain Procedure Date: 04/19/2018 Accession Number: [id number] / [id number] Procedure: XR - Hip w/Pelvis 2-3V LT CPT Code: FULL RESULT: EXAM: LEFT HIP RADIOGRAPHY EXAM DATE: 04/19/2018 05:29 PM. CLINICAL HISTORY: Fall, L hip pain. COMPARISON: 10/08/2014 TECHNIQUE: 2 views. FINDINGS: Bones: No acute fracture. Inferior and superior pubic rami. Joints: No dislocation. Mild osteoarthritis. Right hip arthroplasty partially visualized. Soft Tissues: Heterotopic ossification at the lateral right hip. IMPRESSION: No acute fracture. RADIA
[2018-04-19] MEDS ORDERED: HYDROcod/ACETAM 5/325 MG TABLET PO STA (18:19)
--- NOTE | 2018-04-19 18:24 | ED Physician Documentation ---
History of Present Illness - Stated complaint Stated Complaint: GLF - Chief complaint Chief Complaint: Trauma Ext - History obtained from History obtained from: Patient, Family - History of Present Illness Timing: Today Pain level max: 7 Pain level now: 7 - Additonal information Additional information: 78-year-old male normally utilizes a wheelchair to get around, has fallen twice today landing on the left hip. No head neck or back pain. Has pain at the left hip. Worse with movement better with rest. Has not taken anything for the pain Review of Systems Constitutional: denies: Fever, Chills GI: denies: Vomiting Skin: denies: Rash Musculoskeletal: denies: Neck pain, Back pain Neurologic: denies: Focal weakness, Numbness PD PAST MEDICAL HISTORY - Past Medical History Past Medical History: Yes Cardiovascular: None Respiratory: Emphysema Neuro: Parkinson's Endocrine/Autoimmune: None GI: None : Renal insuffiency HEENT: None Psych: None Musculoskeletal: Osteoarthritis Derm: None - Past Surgical History Past Surgical History: Yes General: Colonoscopy Ortho: Hip replacement, Other Cardiovascular: Cardiac catheterization - Present Medications Home Medications: Ambulatory Orders Medication Instructions Recorded Confirmed Tacrolimus 5 mg PO Q12H 08/15/15 02/26/18 HYDROcod/ACETAM 5/325 [[place] 5/325] 1 - 2 tab PO Q6H PRN #25 tablet 08/14/17 Acyclovir 400 mg PO BID 02/26/18 02/26/18 Aspirin [Adult Aspirin] 81 mg PO DAILY 02/26/18 02/26/18 Atorvastatin Calcium 20 mg PO QPM 02/26/18 02/26/18 Calcitriol 0.25 mcg PO DAILY 02/26/18 02/26/18 Calcium Carbonate [Tums (Calcium 500 mg PO DAILY 02/26/18 02/26/18 Carbonate 500mg)] Carbidopa/Levodopa 25/100 [Sinemet 1 tab PO TID 02/26/18 02/26/18 25 mg/100 mg] Cholecalciferol (Vitamin D3) 400 unit PO DAILY 02/26/18 02/26/18 [Vitamin D3] Ketoconazole [Nizoral] 1 applic TOP .2-3 TIMES PER WEEK 02/26/18 02/26/18 PRN Metoprolol Tartrate 25 mg PO BID 02/26/18 02/26/18 Multivitamin [Multiple Vitamins] 1 each PO DAILY 02/26/18 02/26/18 Mycophenolate Mofetil [(None)] 250 mg PO BID 02/26/18 02/26/18 Pentamidine [Nebupent] 300 mg INH .MONTHLY 02/26/18 02/26/18 Prednisone 5 mg PO DAILY 02/26/18 02/26/18 Bacitracin Zinc Oint 1 applic TOP BID #1 tube 03/09/18 Hydrocodone/Acetaminophen 1 - 2 each PO Q6H PRN #10 tablet 04/19/18 [Hydrocodon-Acetaminophen 5-325] - Allergies Allergies/Adverse Reactions: Allergies Allergy/AdvReac Type Severity Reaction Status Date / Time codeine AdvReac Nausea Verified 04/19/18 15:46 - Social History Does the pt smoke?: No Smoking Status: Never smoker Does the pt drink ETOH?: Yes Does the pt have substance abuse?: No - Immunizations Immunizations are current?: Yes - POLST Patient has POLST: Yes POLST Status: Full Code PD ED PE NORMAL - Vitals Vital signs reviewed: Yes - General General: Alert and oriented X 3, No acute distress - Derm Derm: Warm and dry - Extremities Extremities: Other (Tender to palpation over the lateral aspect of the left hip, worse with movement. Neurovascularly intact. Otherwise normal exam) - Neuro Neuro: Alert and oriented X 3 Results - Vitals Vitals: Vital Signs - 24 hr 04/19/18 04/19/18 15:46 18:50 Temperature 37.0 C 36.9 C Heart Rate 82 80 Respiratory 16 16 Rate Blood Pressure 142/91 H 138/88 H O2 Saturation 97 97 Oxygen O2 Source Room air - Rads (name of study) Left hip x-ray Radiology: Prelim report reviewed, EMP read contemporaneously, See rad report (No acute bony abnormality) PD MEDICAL DECISION MAKING - ED course Complexity details: reviewed results, re-evaluated patient, considered differential, d/w patient ED course: Patient with a left hip contusion. No acute findings on x-ray. He is in a wheelchair most of the time. Pain well controlled. Patient counseled regarding signs and symptoms for which I believe and urgent re-evaluation would be necessary. Patient with good understanding of and agreement to plan and is comfortable going home at this time This document was made in part using voice recognition software. While efforts are made to proofread this document, sound alike and grammatical errors may occur. Departure - Departure Disposition: 01 Home, Self Care Clinical Impression: Contusion of left hip Qualifiers: Encounter type: initial encounter Qualified Code(s): S70.02XA - Contusion of left hip, initial encounter Condition: Good Instructions: ED Contusion Hip Follow-Up: Maninder Diez MD [Primary Care Provider] - Within 1 week Prescriptions: Hydrocodone/Acetaminophen [Hydrocodon-Acetaminophen 5-325] 1 - 2 each PO Q6H PRN #10 tablet PRN Reason: pain Comments: Return if you worsen. Follow-up with your doctor for further care. Your x-rays are normal today. Do not drink alcohol or drive while on narcotic pain medicine. Note that many narcotic pain relievers also contain tylenol/acetaminophen. Please ensure that your total dose of acetaminophen from all sources does not exceed 3 grams (3000mg) per day. You may constipated on this medication, take a stool softener such as "Colace" twice a day while you are on it. Also recommend a [id number] laxative such as senna or MiraLAX any day that you do not have a bowel movement. If you received narcotic pain medication in the emergency department, do not drive or operate machinery for the next 24 hours. Discharge Date/Time: 04/19/18 18:50
[2018-04-19 18:54] VITALS: BP 138/88
== END 2018-04-19 18:50 | disposition home or self-care (01) ==
LOC: ED 15:34
DX: S70.02XA Contusion of left hip, initial encounter (principal); W18.39XA Other fall on same level, initial encounter; Y93.89 Activity, other specified
CPT/HCPCS: 73502; 99283; A9270